=== PATIENT | male | born 1975 | race Caucasian/White ===

== ENCOUNTER → 2016-07-14 | Outpatient (CLI) | payer OTHER ==
[~2016-07-14] MED LIST: GADOBUTROL 10 ML VIAL IVP ONE
== END ==
LOC: FIMAGING 16:34
PROVIDERS: ATTEND Nurse Practitioner
DX: R47.01 Aphasia (principal); R41.3 Other amnesia; H53.9 Unspecified visual disturbance; R51 Headache; B20 Human immunodeficiency virus [HIV] disease
CPT/HCPCS: A9585